=== PATIENT | female | born 2000 | race Caucasian/White ===

== ENCOUNTER 2024-02-11 11:27 | Outpatient (CLI) | payer OTHER, SELFPAY ==
--- OUTSIDE RECORDS SUMMARY | 2024-02-11 11:32 | XMS_ITS | Encounter Summary ---
Author Organization [facility] Address [address] [place] [address] Care Team Providers Care Combining Machine Operator Name Role Phone Post, Mike Pearce APRN, C.N.P. Primary Care Provid er Reason for Visit * Reason Comments Med Refill Encounter Details Date Type Department Care Team (Late st Contact Info) Description 11/06/2023 Refill Department of Family Medicine, [facility], in [place], [place] [address] [place] [phone] Post, Mike Pearce APRN, C.N.P. [address] [place] [phone] Med Refill Social History Tobacco Use Types Packs/Day Years Used Date Smoking Tobacco: Never Smokeless Tobacco: Never Alcohol Use Standard Drinks/Week Comments Yes 2 (1 standard drink = 0.6 oz pur e alcohol) Humiliation, Afraid, Rape, and Kick questionnair e Answer Date Recorded Within the last year, have y ou been afraid of your partner or ex-partner? No 08/17/2021 Within the last year, have y ou been humiliated or emotionally abused in other ways by your partner or ex-partner? No Within the last year, have y ou been kicked, hit, slapped, or otherwise physically hurt by your partner or ex-partner? No 08/17/2021 Within the last year, have y ou been raped or forced to have any kind of sexual activity by your partner or ex-partner? No 08/17/2021 Social Connection and Isolat ion Panel [NHANES] Answer Date Recorded In a typical week, how many times do you talk on the phone with family, friends, or neighbors? More than three times a week 08/17/2021 How often do you get togethe r with friends or relatives? More than three times a week 08/17/2021 How often do you attend chur ch or islam services? Never 08/17/2021 Do you belong to any clubs o r organizations such as yarsani groups, unions, fraternal or athletic groups, or school groups? No 08/17/2021 How often do you attend meet ings of the clubs or organizations you belong to? Never 08/17/2021 Are you , , di vorced, , never , or living with a partner? Never 08/17/2021 AUDIT-C Answer Date Recorded Q1: How often do you have a drink containing alc ohol? 2-4 times a month 08/17/2021 Q2: How many drinks containi ng alcohol do you have on a typical day when you are drinking? 3 or 4 08/17/2021 Q3: How often do you have si x or more drinks on one occasion? Less than monthly 08/17/2021 Overall Financial Resource Strain (CARDIA) Answe r Date Recorded How hard is it for you to pa y for the very basics like food, housing, medical care, and heating? Not very hard 02/20/2023 PHQ-2 Answer Date Recorded PHQ-2 Score 0 06/17/2023 [facility] Answer Date Recorded Do you feel stress - tense, restless, nervous, or anxious, or unable to sleep at night because your mind is troubled all the time - these days? Only a little 08/17/2021 Exercise Vital Sign Answer Date Recorde d On average, how many days pe r week do you engage in moderate to strenuous exercise (like a brisk walk)? 3 days 02/20/2023 On average, how many minutes do you engage in exercise at this level? 30 min 02/20/2023 Hunger Vital Sign Answer Date Recorded Within the past 12 months, y ou worried that your food would run out before you got the money to buy more. Never true 02/21/20 23 Within the past 12 months, t he food you bought just didn't last and you didn't have money to get more. Never true 02/20/2023 PRAPARE - Transportation Answer Date Re corded In the past 12 months, has l ack of transportation kept you from medical appointments or from getting medications? No 02/07 In the past 12 months, has l ack of transportation kept you from meetings, work, or from getting things needed for daily living? No 02/20/2023 Depression Answer Date Recor ded PHQ-9-M Total Score (5-9=Mil d, 10-14=Moderate, 15-19=Moderately Severe, 20-27=Severe) 1 07/14/2019 Nutrition Answer Date Recorded On average, how many serving s of fruits and vegetables do you eat per day (serving size is equal to 1 cup or approximately the size of a tennis ball)? 3-5 02/20/2023 Dental Answer Date Recorded Dental: Regular Dentist Yes 08/18/19 Employment Answer Date Recorded Employment status Employed and actively working without restrictions 02/20/2023 Housing Stability Answer Date Recorded What is your living situation today? I have a [facility] place to live 02/20/2023 Education Answer Date Recorded What is the highest level of school you have completed or the highest degree you have received? Some college, no degree 08/17/2021 Comments Unknown Sex and Gender Information Value Date Recorded Sex Assigned at Female 02/20/2023 8:45 AM MORTGAGE PROCESSING MANAGER Legal Sex Female 2:46 AM MORTGAGE PROCESSING MANAGER Gender Identity Female 02/20/2023 8:45 AM MORTGAGE PROCESSING MANAGER Sexual Orientation Lesbian or Bergman 02/20/2023 8: 45 AM MORTGAGE PROCESSING MANAGER documented as of this encounter Miscellaneous Notes * Telephone Encounter - Kalyn Fair - 11/07/2023 3:02 PM CDT Duplicate(pt sent a request)-being addressed in another encounter documented in this encounter Plan of Treatment Not on file documented as of this encounter Visit Diagnoses Diagnosis Attention Deficit Disorder Combined Type documented in this encounter Additional Health Concerns Assessment Noted Time PHQ-9 Depression Total Score: 1 07/14/19 20 12:53 PM CDT documented as of this encounter Care Teams Combining Machine Operator Relationship Specialty Start Date End Date Post, Mike Pearce APRN, C.N.P. [address] [place] [phone] PCP - General Family Medicine 02/17/23 documented as of this encounter
--- OUTSIDE RECORDS SUMMARY | 2024-02-11 11:32 | XMS_ITS | Encounter Summary ---
Author Organization [facility] Address [address] [place] [id number] Care Team Providers Care Dental Laboratory Supervisor Name Role Phone Post, Mike Pearce APRN C.N.P. Primary Care Provid er Reason for Visit * Reason Onset Date Comments STI Screening 02/04/2024 Encounter Details Date Type Department Care Team (Late st Contact Info) Description 02/04/2024 Nurse Triage Department of Family Medicine, [facility], in [place], [place] [address] [place] [phone] Dayanna Stringer, RTrent, C.M.S.R.N. [address] [place] [phone] STI Screening Social History Tobacco Use Types Packs/Day Years [...] often do you attend chur ch or congregation services? Never 08/17/2021 Do you belong to any clubs o r organizations such as orthodoxy groups, unions, fraternal or athletic groups, or [...] Answer Date Recorded PHQ-2 Score 0 06/17/2023 [facility] - Occupational Stress Questionnaire Answer Date [...] Date Recorded Dental: Regular Dentist Yes 08/18/19 22 Employment Answer Date Recorded Employment status Employed and actively working without restrictions 02/20/2023 Housing Stability Answer Date Recorded What is your living situation today? I have a [facility] place to live 02/20/2023 Education Answer Date Recorded What is the highest level of school you have completed or the highest degree you have received? Some college, no degree 08/17/2021 Comments Unknown Sex and Gender Information Value Date Recorded Sex Assigned at Female 02/20/2023 8:45 AM HOME VISITS NURSE Legal Sex Female 2:46 AM HOME VISITS NURSE Gender Identity Female 02/20/2023 8:45 AM HOME VISITS NURSE Sexual Orientation Lesbian or Bergman 02/20/2023 8: 45 AM HOME VISITS NURSE documented as of this encounter Miscellaneous Notes * Telephone Encounter - Dayanna Stringer R.N., C.M.S.R.N. - 02/04/2024 2:10 PM HOME VISITS NURSE Chief Complaint / Reason for Call Patient is a 23 y.o. female calling regarding STI Screening. Assessment Concern: Concerned for possibility of chlamydia as a sexual partner has tested positive. Denies symptoms. Home cares tried: monitor Calling to request: STI screening The recommended disposition is See a health care provider within 3 days. Patient was warm transferred to [place], Patient Appointment Fur Farmer at the clinic for further assistance. If clinic appointment is not available in the next 3 days, caller is advised to be seen in urgent care, emergency department, same day clinic, or express care. Encouraged call back with new, worsening, or persistent symptoms. Reason for Disposition Sex partner of someone who was diagnosed with an STI (Exception: Male exposed to bacterial vaginosis or vaginal yeast infection.) Protocols used: STI Hllvgzrb-Eimok-RP Care Advice STI Oikeizbk-Ttgpq-LA Nurse Dayanna Lund Feb 04, 2024 02:11 PM Care Advice CARE ADVICE given per STI Exposure (Adult) guideline. CALL BACK IF: * You have more questions STIS - TREATMENT OF EXPOSED SEX PARTNERS: * Sex partners who have been exposed to someone with an STI should be evaluated by their doctor (orNP/PA), given counseling, and in some cases post-exposure treatment to prevent infection. * To avoid reinfection, people exposed to STIs should not have oral, anal, or vaginal sex until they and their partners are evaluated and treated. Reason: Sexual intercourse is only one of the ways that STIs can be spread. REASSURANCE AND EDUCATION - EXPOSURE TO SOMEONE WITH AN STI: * Sex partners who have been exposed to someone with an STI should be evaluated by their doctor (orNP/PA), given counseling, and in some cases post-exposure treatment to prevent infection. * Here is some care advice and health information that should help. VISITS NURSE documented in this encounter Plan of Treatment Not on file documented as of this encounter Visit Diagnoses Not on filedocumented in this encounter Additional Health Concerns Assessment Noted Time PHQ-9 Depression Total Score: 1 07/14/19 20 12:53 PM CDT documented as of this encounter Care Teams Dental Laboratory Supervisor Relationship Specialty Start Date End Date Post, Mike Pearce APRN, C.N.P. [address] [place] [phone] PCP - General Family Medicine 02/17/23 documented as of this encounter
--- OUTSIDE RECORDS SUMMARY | 2024-02-11 11:32 | XMS_ITS | Referral Summary ---
Author Organization [facility] Address [address] [place] [address] Care Team Providers Care Grease Refining Supervisor Name Role Phone Post, Mike Pearce APRN, C.N.P. Primary Care Provid er Source Comments Patient records contain information from all sites at [facility]. For routine questions regarding patient records, call [phone] during business hours, M-F 8:00 AM - 5:00 PM Central Time. Record requests for emergency care only can be directed to [phone] at any time.[facility] Encounters Date Type Department Care Team Description 02/10/2024 Refill Department of [facility], [facility], in [place] [address] [place] [place] [phone] Mike Hampton APRN, C.N.P. Med Refill 02/04/2024 Nurse Triage Department of [facility], [facility], [place] [address] [place] [phone] Dayanna Stringer R.N., C.M.S.R.N. STI Screening 01/12/2024 Refill Department of Family [facility], [facility], [place] [address] [place] [phone] Mike aHmpton APRN, C.N.P. Med Refill 11/30/2023 Refill Department of Family [facility], [facility], [place] [address] [place] [phone] Mike Hampton APRN, C.N.P. Med Refill 11/28/2023 9:25 AM CDT - 11/28/2023 10:09 AM CDT Emergency [facility] [address] [place] [address] [place] [phone] Aliza Simmons APRN, C.N.P., D.N.P. Laceration Hand Without Foreign Body Initial Right (Primary Dx) Discharge Disposition: Home or Self Care from Last 3 Months Allergies Active Allergy Reactions Criticality Noted Date Comments Amoxicillin Rash 09/03/2002 Sulfa (Sulfonamide Antibiotics) Hives (Reselect Reaction) 02/06/2012 by history Medications * This document contains information received from the source organization and may not represent a complete record from that organization. methylphenidate HCl 18 mg ER tabletIndicatio ns:Attention Deficit Disorder Combined Type Take 1 tablet (18 mg total) by mouth every morning. 30 tablet 4 Active methylphenidate HCl 18 mg ER tabletIndicatio ns:Attention Deficit Disorder Combined Type Take 1 tablet (18 mg total) by mouth every morning. 30 tablet 4 01/14/20 24 Discontinued Active Problems Problem Noted Date Diagnosed Date Attention Deficit Disorder Combined Type 018 Resolved Problems Problem Noted Date Diagnosed Date Resolved Date Fatigue 02/24/2023 06/18/2023 Immunizations Name Administration Dates Next Due 4vHPV (discontinued) 08/09/2013,03/08/2013,12/29 DTaP (Infanrix, Tripedia) 07/28/2006,07/2003,06/08/2002,2002,02/11/2002 DTaP / Hib 03/14/2003 DTaP, Unspecified 07/28/2006, 3,04/12/2002,2001 H1N1 All Forms 02/21/2009,01/14/2009 H1N1 Inj 02/22/2009 H1N1 Nasal 01/14/2009 HPV, Unspecified 08/09/2013, 3,12/29/2012,2012(Deferred: Other) HepA Pediatric/Adolescent 09/13/2016,10/13/2014 HepA, Unspecified 12/08/2016(Deferred: Other) HepB Pediatric/Adolescent 09/03/2002,04/12/2002, 02/11/2002 Hib, Unspecified 03/14/2003,04/12/2002, 2 Hib-HepB 04/12/2002,02/11/2002 IPV 07/28/2006, 3,04/12/2002,2001 Influenza Split 12/21/2012,01/09/2012,01/17/2011 Influenza, Injectable, Quadrivalent 01/02/2015 Influenza, Seasonal, Injectable 01/09/20 12,01/17/2011,01/10/2006,2002 Influenza, Unspecified 12/11/2016,01/15/2016 MCV4 (Menactra)(Discontinued) 01/11/2019, 015,12/29/2012 MCV4 (Menveo) 10/13/2014,12/29/2012 MCV4, Unspecified 12/29/2012 MMR 12/17/2004,12/15/2002 PCV7 (discontinued) 03/14/2003, 3,04/10/2002,2001 Tdap 02/24/2023,12/29/2012 PATRICK 07/28/2006,12/15/2002 influenza LAIV (Nasal) (2 ye ars through 49 years) 12/27/2013 influenza trivalent LAIV (Na alfonzo) (2 years through 49 years) 12/21/2009,01/26/2009,03/22/2008,2006 influenza trivalent high dos e (HD)(PF) 12/21/2012 influenza vaccine quad (FLUZONE/FLUARIX) (6 months and older)(PF) 01/11/2019,01/19/2018,12/11/2016,2015 Social History Tobacco Use Types Packs/Day Years Used Date Smoking Tobacco: Never Smokeless Tobacco: Never Tobacco Cessation:Counseling Given: Yes Alcohol Use Standard Drinks/Week Comments Yes 2 [...] week 08/17/2021 How often do you attend [facility] or yarsanism services? Never 08/17/2021 Do you belong to any clubs o r organizations such as lutheran groups, unions, fraternal or athletic groups, or [...] Answer Date Recorded PHQ-2 Score 0 06/17/[address] [facility] [address] [facility] - Occupational Stress Questionnaire Answer Date Recorded [...] your living situation today? I have a [facility] place to live 02/20/2023 Education Answer Date Recorded What is the highest level of school you have completed or the highest degree you have received? Some college, no degree 08/17/2021 Comments Unknown Sex and Gender Information Value Date Recorded Sex Assigned at Female 02/20/2023 8:45 AM FUR MATCHER Legal Sex Female 2:46 AM FUR MATCHER Gender Identity Female 02/20/2023 8:45 AM FUR MATCHER Sexual Orientation Lesbian or Bergman 02/20/2023 8: 45 AM FUR MATCHER Last Filed Vital Signs Vital Sign Reading Time Taken Comments Blood Pressure 113/60 11/28/2023 9:30 AM CDT Pulse 94 11/28/2023 9:30 AM CDT Temperature 36.3 C (97.3 F) 11/28/2023 9:30 AM CDT Respiratory Rate 18 11/28/2023 9:30 AM CDT Oxygen Saturation 100% 11/28/2023 9:30 AM CDT Inhaled Oxygen Concentration - - Weight 54.8 kg (120 lb 13 oz) 06/18/2023 10:52 A M CDT Height 164 cm (5' 4.57) 06/18/2023 10:52 AM CDT Body Mass Index 20.37 06/18/2023 10:52 AM CDT Plan of Treatment Not on file Procedures Procedure Name Priority Date/Time Associated Diagnosis Comments LACERATION REPAIR Routine 11/28/2023 9:5 3 AM CDT HPV WITH GENOTYPING, PCR, THINPREP Routine 06/18/2023 11:16 AM CDT CHLAMYDIA/GONORRHOEA E AMPLIFIED RNA Routine 01/26/2018 1:55 PM FUR MATCHER Screening For Venereal Disease from Last 3 Months or Most Recently Relevant to Health Maintenance Results * Laceration Repair (11/28/2023 9:53 AM CDT) Narrative Aliza Simmons APRN, C.N.P., D.N.P. - 11/28/2023 9:53 AM CDT Aliza Simmons APRN, C.N.P., D.N.P. 11/28/2023 9:54 AM Laceration Repair Performed by: Aliza Simmons APRN, C.N.P., D.N.P. Authorized by: Aliza Simmons APRN, C.N.P., D.N.P. PROCEDURE DETAILS Repair type: Simple Limited defect created (wound extended): yes Hemostasis achieved with: Direct pressure Contaminated: no Wound exploration: wound explored through full range of motion Wound extent: areolar tissue violated Repair method: Sutures Suture size: 4-0 Suture material: Nylon Suture technique: Simple interrupted Number of sutures: 4 Approximation: Close CONSENT Consent obtained: verbal Consent given by: patient The benefits, risks and alternatives to the procedure and the potential need for sedation or anesthesia as well as the names, roles, and responsibilities of healthcare team members performing significant interventional tasks were discussed with the patient and/or decision maker. UNIVERSAL PROTOCOL All relevant documentation and testing were reviewed and available. All required blood products, implants, devices and or special equipment were made available as applicable. Pre-procedure verification was conducted and the correct site was marked if required. A fire risk and smoke assessment were done as applicable. The procedural time-out to verify correct patient, correct side/site, and procedure was conducted prior to performing the procedure and confirmed in a procedural pause. SEDATION / ANESTHESIA Anesthesia method: none PRE PROCEDURE DETAILS Indication: laceration Location: Hand Hand location: Right dorsal surface Circulation distal to injury: capillary refill < 2 sec, warm and palpable pulse Movement distal to injury: normal Sensation distal to injury: normal Area cleansed with: Saline Amount of cleaning: Standard Irrigation solution: Sterile saline Irrigation volume (mL): 500 Irrigation method: Pressure wash Foreign body imaging: None Appropriate hand hygiene, gown, cap, mask, protective eyewear, sterile gloves, skin preparation, sterile drape, and strict aseptic technique were utilized as applicable for the procedure.: Yes POST PROCEDURE DETAILS Procedure completed successfully: yes Tetanus status up to date: Up to date Dressing Applied: yes Dressing applied: Non-stick sterile dressing Circulation distal to injury: capillary refill < 2 sec, warm and palpable pulse Movement distal to injury: normal Sensation distal to injury: normal Complications: no immediate complications Aliza Simmons APRN, C.N.P ., D.N.P. PROCEDURE/MINOR SURGICAL ORDERABLES Final Result * HPV with Genotyping, PCR, ThinPrep (06/18/2023 11:16 AM CDT) HPV with Genotyping, ThinPrep, PCR Negative Negative 06/24/2023 12:42 PM CDT ECLR Comment: Negative for high risk HPV by nucleic acid amplification. The following high risk HPV types were not detected: 16, 18, 31, 33, 35, 39, 45, 51, 52, 56, 58, 59, 66, and 68 This result does not rule out HPV in the patient, as the sensitivity of the test depends on the timing of the specimen collection and the quality of the specimen. Result should be correlated with patient's history, clinical presentation, and [facility] cytology report. 06/18/2023 11:1 6 AM CDT 06/19/2023 7:24 AM CDT us Beckie Manuel M.D. LAB MICROBIOLOGY - GENERAL ORDERABLES Final Result Performing Organization Address [facility]/ZIP Co de Phone Number [facility] [address] [place] [id number] ECLR [address] [place] [id number] * Chlamydia / Gonorrhoeae Amplified RNA (01/26/2018 1:55 PM FUR MATCHER) Source URINE, FIRST VOID 01/27/2018 2:08 PM FUR MATCHER [facility] Chlamydia trachomatis amplified RNA Negative Negative 01/27/2018 2:08 PM FUR MATCHER [facility] Comment: ----ADDITIONAL INFORMATION---- This report is intended for use in clinical monitoring and management of patients. It is not intended for use in medical-legal applications. Source URINE, FIRST VOID 01/27/2018 2:08 PM FUR MATCHER [facility] Neisseria gonorrhoeae amplified RNA Negative Negative 01/27/2018 2:08 PM FUR MATCHER [facility] Comment: ----ADDITIONAL INFORMATION---- This report is intended for use in clinical monitoring and management of patients. It is not intended for use in medical-legal applications. Varies (Urine, First Voided) 01/26/2018 1:55 PM FUR MATCHER 01/26/2018 9:47 PM FUR MATCHER us Sarahi Riggs LAB MICROBIOLOGY - GENERAL ORDERABLES Final Result [facility] [address] [place] [address], [facility] from Last 3 Months or Most Recently Relevant to Health Maintenance Insurance [facility] [address] [place] [address] Care Teams Grease Refining Supervisor Relationship Specialty Start Date End Date Post, Mike Pearce APRN, C.N.P. [address] [place] [address] PCP - General Family Medicine 02/17/23
--- OUTSIDE RECORDS SUMMARY | 2024-02-11 11:32 | XMS_ITS | Clinical Summary ---
Author Organization [facility] Address [address] [place] [address] Care Team Providers Care Delivery Recruiter Name Role Phone Post, Cari Puente APRN.N.P. Primary Care Provid er Source Comments Patient records contain information from all sites at [facility]. For routine questions regarding patient records, call [phone] during business hours, M-F 8:00 AM - 5:00 PM Central Time. Record requests for emergency care only can be directed to [phone] at any time.[facility] Allergies Active Allergy Reactions Criticality Noted Date [...] Diagnosed Date Resolved Date Fatigue 02/24/2023 06/18/2023 Encounters Date Type Department Care Team Description 02/10/2024 Refill Department of Family Medicine, [facility], in [place] [address] [place] [phone] Post, Mike Pearce APRN C.N.P. Med Refill 02/04/2024 Nurse Triage Department of [facility], [facility], in [place] [address] [place] [phone] Dayanna Stringer R.N., C.M.S.R.N. STI Screening 01/12/2024 Refill Department [facility], [facility], in [place] [address] [address], [place] [phone] Post, Mike Pearce APRN, C.N.POneyda Med Refill 11/30/2023 Refill Department [facility], in [place] [address] [place] [phone] Post, Mike Pearce APRN C.N.P. Med Refill 11/28/2023 9:25 AM CDT - 11/28/2023 10:09 AM CDT Emergency [facility] [address] [place] [address], [place] [phone] Aliza Simmons APRN, C.N.P., D.N.P. Laceration Hand Without Foreign Body Initial Right (Primary Dx) Discharge Disposition: Home or Self Care from Last 3 Months Immunizations Name Administration Dates Next Due 4vHPV [...] quad (FLUZONE/FLUARIX) (6 months and older)(PF) 01/11/2019,01/19/2018,12/11/2016,2015 Family History Medical History Relation Name Comments No Known Problems Brother No Known Problems Father Anxiety depression Mother Brynn Depression Mother Brynn Heart attack Paternal Grandfather No Known Problems Sister Stroke Neg Hx Relation Name Status Comments Brother Alive Father Alive Mother Brynn Alive Paternal Grandfather Alive Sister Alive Social History Tobacco Use Types Packs/Day Years [...] 08/17/2021 How often do you attend chur or congregational services? Never 08/17/2021 Do you belong to [...] PHQ-2 Score 0 06/17/2023 [facility] - Occupational Stress Questionnaire Answer Date [...] money to buy more. Never true 02/21/20 Within the past 12 months, t he [...] your living situation today? I have a [facility] place to live 02/20/2023 Education Answer Date Recorded What is the highest level of school you have completed or the highest degree you have received? Some college, no degree 08/17/2021 Comments Unknown Sex and Gender Information Value Date Recorded Sex Assigned at Female 02/20/2023 8:45 AM SUPERVISOR ALUMINUM FABRICATION Legal Sex Female 2:46 AM SUPERVISOR ALUMINUM FABRICATION Gender Identity Female 02/20/2023 8:45 AM SUPERVISOR ALUMINUM FABRICATION Sexual Orientation Lesbian or Bergman 02/20/2023 8: 45 AM SUPERVISOR ALUMINUM FABRICATION Last Filed Vital Signs Vital Sign Reading [...] 06/18/2023 10:52 AM CDT Plan of Treatment Health Maintenance Due Date Last Done Comments HIV Screening 2001 Hepatitis C Screening 2001 Chlamydia and Gonorrhea Screening 01/26/2019 01/26/2018 COVID-19 Vaccine ( season) 2023 Influenza Vaccine (#1) 2023 9, 01/19/2018, 12/11/2016, Additional history exists Tobacco Cessation counseling 06/17/2024 06/18/2023 Cervical/Vaginal Cancer Screening 06/17/2026 06/18/2023, 06/18/2023 DTaP,Tdap,and Td Vaccines (8 - Td or Tdap) 02/24/2033 02/24/2023, 12/29/2012, 07/28/2006, Additional history exists Hepatitis B Vaccines Completed 09/03/2002, 04/12/2002, 04/12/2002, Additional history exists Pneumococcal vaccine (0-64 years) Aged Out 03/14/2003, 06/14/2002, 04/10/2002, Additional history exists No longer eligible based on patient's age to complete this topic IPV Vaccines Completed 07/28/2006, 09/2002, 04/12/2002, Additional history exists Varicella Vaccines Completed 07/28/2006, 12/15/2002 HPV Vaccines Completed 08/09/2013, 04/2013, 03/08/2013, Additional history exists Meningococcal Vaccine Completed 01/11/2019 , 10/13/2014, 10/13/2014, Additional history exists Depression Screening (Annual PHQ-2) Completed 06/18/2023, 06/17/2023 Procedures Procedure Name Priority Date/Time Associated Diagnosis Comments LACERATION REPAIR Routine 11/28/2023 9:5 3 AM CDT HPV WITH GENOTYPING, PCR, THINPREP Routine 06/18/2023 11:16 AM CDT CHLAMYDIA/GONORRHOEA E AMPLIFIED RNA Routine 01/26/2018 1:55 PM SUPERVISOR ALUMINUM FABRICATION Screening For Venereal Disease from Last 3 [...] correlated with patient's history, clinical presentation, and OPHTHALMIC TECHNICIAN cytology report. 06/18/2023 11:1 6 AM CDT 06/19/2023 7:24 AM CDT us Beckie Manuel M.D. LAB MICROBIOLOGY - GENERAL ORDERABLES Final Result Performing Organization Address City/[facility]/ZIP Co de Phone Number [facility] [address] [place] [phone], [facility] ECLR [address] [phone] * Chlamydia / Gonorrhoeae Amplified RNA (01/26/2018 1:55 PM SUPERVISOR ALUMINUM FABRICATION) Source URINE, FIRST VOID 01/27/2018 2:08 PM SUPERVISOR ALUMINUM FABRICATION [facility] Chlamydia trachomatis amplified RNA Negative Negative 01/27/2018 2:08 PM SUPERVISOR ALUMINUM FABRICATION [facility] Comment: ----ADDITIONAL INFORMATION---- This report is intended for use in clinical monitoring and management of patients. It is not intended for use in medical-legal applications. Source URINE, FIRST VOID 01/27/2018 2:08 PM SUPERVISOR ALUMINUM FABRICATION [facility] Neisseria gonorrhoeae amplified RNA Negative Negative 01/27/2018 2:08 PM SUPERVISOR ALUMINUM FABRICATION [facility] Comment: ----ADDITIONAL INFORMATION---- This report is intended for use in clinical monitoring and management of patients. It is not intended for use in medical-legal applications. Varies (Urine, First Voided) 01/26/2018 1:55 PM SUPERVISOR ALUMINUM FABRICATION 01/26/2018 9:47 PM SUPERVISOR ALUMINUM FABRICATION us Sarahi Riggs LAB MICROBIOLOGY - GENERAL ORDERABLES Final Result [facility] [address] [place] [phone], [facility] from Last 3 Months or Most Recently Relevant to Health Maintenance Insurance [facility] [address] [place] [id number] [address] [place] [phone] [facility] [address] [place] [id number] Care Teams Delivery Recruiter Relationship Specialty Start Date End Date Post, Mike Pearce APRN, C.N.P. [address] [place] [phone] PCP - General Family Medicine 02/17/23
--- OUTSIDE RECORDS SUMMARY | 2024-02-11 11:32 | XMS_ITS | Encounter Summary ---
Author Organization [facility] Address [address] [place] [address] Care Team Providers Care Day Worker Name Role Phone Post, Mike Pearce APRN, C.N.P. Primary Care Provid er Reason for Visit * Reason Comments Med Refill Encounter Details Date Type Department Care Team (Late st Contact Info) Description 02/10/2024 Refill Department of Family Medicine, [facility], in [place], [place] [address] [place] [phone] Post, Mike Pearce APRN, C.N.P. [address] [place] [phone] Med Refill Social History Tobacco Use Types [...] often do you attend chur ch or voodoo services? Never 08/17/2021 Do you belong to any clubs o r organizations such as anabaptist groups, unions, fraternal or athletic groups, or [...] Answer Date Recorded PHQ-2 Score 0 06/17/2023 [facility] Questionnaire Answer Date [...] your living situation today? I have a [facility] place to live 02/20/2023 Education Answer Date Recorded What is the highest level of school you have completed or the highest degree you have received? Some college, no degree 08/17/2021 Comments Unknown Sex and Gender Information Value Date Recorded Sex Assigned at Female 02/20/2023 8:45 AM CAP INSPECTOR Legal Sex Female 2:46 AM CAP INSPECTOR Gender Identity Female 02/20/2023 8:45 AM CAP INSPECTOR Sexual Orientation Lesbian or Bergman 02/20/2023 8: 45 AM CAP INSPECTOR documented as of this encounter Plan of Treatment Not on file documented as of this encounter Visit Diagnoses Diagnosis Attention Deficit Disorder Combined Type documented in this encounter Additional Health Concerns Assessment Noted Time PHQ-9 Depression Total Score: 1 07/14/19 20 12:53 PM CDT documented as of this encounter Care Teams Day Worker Relationship Specialty Start Date End Date Post, Mike Pearce APRN, C.N.P. [address] [place] [phone] PCP - General Family Medicine 02/17/23 documented as of this encounter
--- OUTSIDE RECORDS SUMMARY | 2024-02-11 11:32 | XMS_ITS | Encounter Summary ---
Author Organization [facility] Address [address] [place] [address] Care Team Providers Care Leader Writer Name Role Phone Post, Mike Pearce APRN, C.N.P. Primary Care Provid er Reason for Visit * Reason Comments Med Refill Encounter Details Date Type Department Care Team (Late st Contact Info) Description 01/12/2024 Refill Department of Family Medicine, [facility], in [place], [place] [address] [place] [phone] Post, Mike Pearce APRN, C.N.P. 200 [place] [phone] Med Refill Social History Tobacco Use Types [...] often do you attend chur ch or sabianist services? Never 08/17/2021 Do you belong to any clubs o r organizations such as amish groups, unions, fraternal or athletic groups, or [...] Answer Date Recorded PHQ-2 Score 0 06/17/2023 [facility] Questionnaire Answer Date Recorded [...] your living situation today? I have a [facility] place to live 02/20/2023 Education Answer Date Recorded What is the highest level of school you have completed or the highest degree you have received? Some college, no degree 08/17/2021 Comments Unknown Sex and Gender Information Value Date Recorded Sex Assigned at Female 02/20/2023 8:45 AM PHYSICAL TESTING SUPERVISOR Legal Sex Female 2:46 AM PHYSICAL TESTING SUPERVISOR Gender Identity Female 02/20/2023 8:45 AM PHYSICAL TESTING SUPERVISOR Sexual Orientation Lesbian or Bergman 02/20/2023 8: 45 AM PHYSICAL TESTING SUPERVISOR documented as of this encounter Miscellaneous Notes * Telephone Encounter - Raina Larry L.P.NOneyda - 01/13/2024 2:31 PM PHYSICAL TESTING SUPERVISOR Controlled substance renewal for Concerta 18 mg: ALERT NURSING CONCERN: 6 month ADD follow up overdue Renewal is pended, but missing information provider to complete if okay with renewal due to concerns by nursing Date last renewed (start date): 12/02/2023 Last provider visit: Pap 06/18/2023, ADD 02/24/2023 Next provider visit due: 08/26/2023 overdue, order in place to schedule ICAL TESTING SUPERVISOR documented in this encounter Plan of Treatment Not on file documented as of this encounter Visit Diagnoses Diagnosis Attention Deficit Disorder Combined Type documented in this encounter Additional Health Concerns Assessment Noted Time PHQ-9 Depression Total Score: 1 07/14/19 20 12:53 PM CDT documented as of this encounter Care Teams Leader Writer Relationship Specialty Start Date End Date Post, Mike Pearce APRN, C.N.P. [address] [place] [phone] PCP - General Family Medicine 02/17/23 documented as of this encounter
--- OUTSIDE RECORDS SUMMARY | 2024-02-11 11:32 | XMS_ITS ---
Author Organization [facility] Address [address] [place] [address] Care Team Providers Care Marine Tower Operator Name Role Phone Unavailable Unavailable Unavailable Surgery Details Not on file Complications Check Surgery Details section. Procedure Estimated Blood Loss Check Surgery Details section. Procedure Findings Check Surgery Details section. Procedure Specimens Taken Check Surgery Details section.
--- OUTSIDE RECORDS SUMMARY | 2024-02-11 11:32 | XMS_ITS | Encounter Summary ---
Author Organization [facility] Address [address] [place] [address] Care Team Providers Care Kiln Operator Helper Name Role Phone Post, Mike Pearce APRN, C.N.P. Primary Care Provid er Reason for Referral * Outpatient (Routine) - Authorized Specialty Diagnoses / Procedures Referred By Contsamm t Referred To Contact Emergency Medicine Diagnoses Laceration Hand Without Foreign Body Initial Right Aliza Simmons APRN, C.N.P., D.N.P. [address] [phone] Phone: tel: fax: [facility] Region Referral ID Status Reason Start Date Expiration Date V isits Requested Visits Authorized [id number] Authorized 11/28/2023 05/29/2025 1 1 Reason for Visit * Reason Comments Laceration Right 5th finger Encounter Details Date Type Department Care Team (Late st Contact Info) Description 11/28/2023 9:25 AM CDT - 11/28/2023 10:09 AM CDT Emergency [facility] [address] [place] [address] [place] [phone] Aliza Simmons APRN, C.N.P., D.N.P. [address] [place] [phone] Laceration Hand Without Foreign Body Initial Right (Primary Dx) Discharge Disposition: Home or Self Care Social History Tobacco Use Types Packs/Day Years [...] week 08/17/2021 How often do you attend [facility] or amish services? Never 08/17/2021 Do you belong to any clubs o r organizations such as orthodox groups, unions, fraternal or athletic groups, or [...] PHQ-2 Score 0 06/17/2023 [facility] - Occupational Stress Questionnaire Answer Date Recorded [...] Sex Assigned at Female 02/20/2023 8:45 AM NURSING EXECUTIVE Legal Sex Female 2:46 AM NURSING EXECUTIVE Gender Identity Female 02/20/2023 8:45 AM NURSING EXECUTIVE Sexual Orientation Lesbian or Bergman 02/20/2023 8: 45 AM NURSING EXECUTIVE documented as of this encounter Last Filed Vital Signs Vital Sign Reading Time Taken Comments Blood Pressure 113/60 11/28/2023 9:30 AM CDT Pulse 94 11/28/2023 9:30 AM CDT Temperature 36.3 C (97.3 F) 11/28/2023 9:30 AM CDT Respiratory Rate 18 11/28/2023 9:30 AM CDT Oxygen Saturation 100% 11/28/2023 9:30 AM CDT Inhaled Oxygen Concentration - - Weight - - Height - - Body Mass Index - - documented in this encounter Discharge Instructions * Discharge Instructions* Aliza Simmons APRN, C.N.P., D.N.P. - 11/28/2023 9:55 AM CDT You will need to have your sutures removed within a week. You may continue to take oqwh-ira-rykqtbcHqwwrmh 650 mg every 4-6 hours as needed for pain or discomfort return with any worsening symptoms,or any other concerns. * Attachments The following attachments cannot be sent through Care Everywhere. * Laceration Care Adult Ngld-ux-[id number] (Japanese) documented in this encounter Medications at Time of Discharge methylphenidate HCl 18 mg ER tabletIndications :Attention Deficit Disorder Combined Type Take 1 tablet (18 mg total) by mouth every morning. 30 tablet 11/11/2023 11/30/2023 documented as of this encounter Procedure Notes * Aliza Simmons APRN, C.N.P., D.N.P. - 11/28/2023 9:53 AM CDTAssociated Order(s): Laceration Repair Procedure Laceration Repair Performed by: Aliza Simmons APRN, [...] Complications: no immediate complications Aliza Simmons APRN, C.N.P., D.N.P. 11/28/23 0977 documented in this encounter ED Notes * Aliza Simmons APRN, C.N.P., D.N.P. - 11/28/2023 9:30 AM CDT SUBJECTIVE CHIEF COMPLAINT/REASON FOR VISIT Laceration (Right 5th finger) HISTORY OF PRESENT ILLNESS This is a 22-year-old female, who presents to the emergency department for evaluation of a laceration to her right 5th digit. Prior to her arrival, while she was reaching in her purse, she obtain a laceration with a broken mirror that she has short in her purse. She is able to move her fingers, shedoes not have any loss of sensation or paresthesias. REVIEW OF SYSTEMS All other systems reviewed and are negative. OBJECTIVE Initial Vitals [11/28/23 0930] Temperature 36.3 ??C Pulse Rate 94 Heart Rate Resp Rate 18 Blood Pressure 113/60 SpO2 100 % Pain Score 0 - No pain PHYSICAL EXAMINATION Constitutional: Nursing note and vitals reviewed. No distress. HENT: Head: Normocephalic. Mouth/Throat: Mucous membranes are moist. Cardiovascular: Normal rate and regular rhythm. Skin: She is not diaphoretic. Horizontal laceration to base of right 5th phalanx, surrounding tissue with no erythema, edema, or hematoma. Right upper extremities neurovascularly intact. ASSESSMENT/PLAN Patient is hemodynamically stable upon her arrival to the emergency department. Wound was explored thoroughly, there is no obvious foreign body. Her right upper extremity is neurovascularly intact. There is no concern for tendon or ligament injury. Please refer to separate note for laceration repair details. Discharge home disposition was discussed. She will need to follow-up with PCP within a week for suture removal. She may continue to take jusu-ujc-mlkekdf acetaminophen 650 mg every 4 to hours as needed pain or discomfort. Strict return precautions were discussed. She is in agreement with the plan of care. Final Diagnoses: as of 11/28/23 1002 Laceration Hand Without Foreign Body Initial Right Aliza Simmons APRN, LouisN.P., D.N.P. 11/28/23 1018 documented in this encounter Plan of Treatment Scheduled Referrals Name Type Priority Associated Diagnoses Orde r Schedule POST ED VISIT Family Medicine Outpatient Referral Routine Laceration Hand Without Foreign Body Initial Right Expected: 12/05/2023, Expires: 02/26/2025 documented as of this encounter Procedures Procedure Name Priority Date/Time Associated Diagnosis Comments LACERATION REPAIR Routine 11/28/2023 9:5 3 AM CDT documented in this encounter Results * Laceration Repair (11/28/2023 9:53 AM CDT) Narrative Aliza Simmons APRN, Cari.N.P., D.N.P. - 11/28/2023 9:53 AM CDT Aliza Simmons APRN, LouisN.POneyda, D.N.P. 11/28/2023 9:54 AM Laceration Repair Performed by: Aliza Simmons APRN, C.N.POneyda, D.N.P. Authorized by: Aliza Simmons APRN, C.N.POneyda, D.N.P. PROCEDURE DETAILS Repair type: Simple Limited [...] ., D.N.P. PROCEDURE/MINOR SURGICAL ORDERABLES Final Result documented in this encounter Visit Diagnoses Diagnosis Laceration Hand Without Foreign Body Initial Right- Primary documented in this encounter Administered Medications Inactive Administered Medications - up to 3 most recent administrations Medication Order MAR Action Action Date Dose Rate Site lidocaine 10 mg/mL (1 %) injection 5 mL (Xylocaine) 5 mL, infiltration, Once, On Fri11/28/23 at 0933, For 1 dose Given by Other 11/28/2023 9:35 AM CDT 5 mL documented in this encounter Active and Recently Administered Medications Times are shown in CDT. Scheduled Medication Order 11/26/2023 11/27/2023 11/28/2023 lidocaine 10 mg/mL (1 %) injection 5 mL (Xylocaine) (COMPLETED) 5 mL, infiltration, Once, On Fri11/28/23 at 0933, For 1 dose 0935 (Given by Other - Provider: Florin BenderNOneyda) ondansetron ODT disintegrating tablet 4 mg (Zofran-ODT) 4 mg, oral, Once, On Fri11/28/23 at 0954, For 1 dose, When splitting ODT at bedside, handle with gloves and a pill splitter to prevent moisture contact. 0954 (Due) documented in this encounter Additional Health Concerns Assessment Noted Time PHQ-9 Depression Total Score: 1 07/14/19 20 12:53 PM CDT documented as of this encounter Care Teams Kiln Operator Helper Relationship Specialty Start Date End Date Post, Mike Pearce APRN, C.N.P. [address] [place] [phone] PCP - General Family Medicine 02/17/23 documented as of this encounter
--- OUTSIDE RECORDS SUMMARY | 2024-02-11 11:32 | XMS_ITS | Encounter Summary ---
Author Organization [facility] Address [address] [place] [address] Care Team Providers Care Group Contract Analyst Name Role Phone Post, Mike Pearce APRN, C.N.P. Primary Care Provid er Reason for Visit * Reason Comments Med Refill Encounter Details Date Type Department Care Team (Late st Contact Info) Description 11/30/2023 Refill Department of Family Medicine, [facility], in [place], [place] [address] [place] [phone] Post, Mike Pearce APRN, C.N.P. 200 [place] [phone] Med Refill Social History Tobacco Use Types [...] any clubs o r organizations such as mandaen groups, unions, fraternal or athletic groups, or [...] Answer Date Recorded PHQ-2 Score 0 06/17/2023 [facility] Questionnaire [...] Sex Assigned at Female 02/20/2023 8:45 AM OPEN SHANK COVERER Legal Sex Female 2:46 AM OPEN SHANK COVERER Gender Identity Female 02/20/2023 8:45 AM OPEN SHANK COVERER Sexual Orientation Lesbian or Bergman 02/20/2023 8: 45 AM OPEN SHANK COVERER documented as of this encounter Miscellaneous Notes * Telephone Encounter - Irene Bobby L.P.NOneyda - 12/02/2023 9:39 AM CDT Controlled substance renewal for Concerta 18mg: ALERT NURSING CONCERN: OVERDUE for OFFICE VISIT Renewal is pended per the controlled substance prescribing plan located in Synopsis Date last renewed (start date): 11/11/2023 Last provider visit: 02/24/2023 Screenings due: current Next provider visit due: OVERDUE, active order This prescription may be filled on 12/11/2023, and next renewal may be on or after 01/10/2024 documented in this encounter Plan of Treatment Not on file documented as of this encounter Visit Diagnoses Diagnosis Attention Deficit Disorder Combined Type documented in this encounter Additional Health Concerns Assessment Noted Time PHQ-9 Depression Total Score: 1 07/14/19 20 12:53 PM CDT documented as of this encounter Care Teams Group Contract Analyst Relationship Specialty Start Date End Date Post, Mike Pearce APRN, C.N.P. [address] [place] [phone] PCP - General Family Medicine 02/17/23 documented as of this encounter
--- OUTSIDE RECORDS SUMMARY | 2024-02-11 11:33 | XMS_ITS | Encounter Summary ---
Author Organization [facility] Address [address] [place] [address] Care Team Providers Care Cashier General Name Role Phone Post, Mike Pearce APRN C.N.P. Primary Care Provid er Encounter Details Date Type Department Care Team (Late st Contact Info) Description 07/11/2004 Historical Ophthalmology RST OPH Ayad Thurman M.D. Social History Tobacco Use Types Packs/Day Years Used Date Smoking Tobacco: Never Assessed Comments Unknown Sex and Gender Information Value Date Recorded Sex Assigned at Female 02/20/2023 8:45 AM ICICLE MACHINE OPERATOR Legal Sex Female 2:46 AM ICICLE MACHINE OPERATOR Gender Identity Female 02/20/2023 8:45 AM ICICLE MACHINE OPERATOR Sexual Orientation Lesbian or Bergman 02/20/2023 8: 45 AM ICICLE MACHINE OPERATOR documented as of this encounter Progress Notes * Ayad Thurman M.D. - 07/11/2004 12:00 AM CDT Eye General HISTORY OF PRESENT ILLNESS 3 year 7 month old female, full term baby here because her left eye occasionally turns out. Mom states she holds her hand over it. Left eye soto. IMPRESSION / REPORT / PLAN #1 intermittent XT fair control per hx and exam #2 mild anisometropia discussed in detail with mother, patch right eye 2-3 hrs/day, recheck 6 wks, sooner prn, recheck cyclo rns DIAGNOSIS #1 intermittent XT #2 mild anisometropia CDM Reports - EYEGEN Id: [id number] Status: Fnl documented in this encounter Plan of Treatment Not on file documented as of this encounter Visit Diagnoses Not on filedocumented in this encounter Additional Health Concerns Infection Onset Date Last Indicated Resolved Time COVID19 Pending 12/16/2019 12/16/2019 12/19/2019 3 :49 PM CDT documented as of this encounter Care Teams Cashier General Relationship Specialty Start Date End Date Post, Mike Pearce APRN, C.N.P. [address] [place] [address] PCP - General Family Medicine 02/17/23 documented as of this encounter
--- OUTSIDE RECORDS SUMMARY | 2024-02-11 11:33 | XMS_ITS | Encounter Summary ---
Author Organization [facility] Address [address] [place] [address] Care Team Providers Care Dx Board Operator Name Role Phone Post, Mike Pearce APRN C.N.POneyda Primary Care Provid er Encounter Details Date Type Department Care Team (Late st Contact Info) Description 11/20/2004 Historical Ophthalmology RST OPH Ayad Thurman M.D. Social History Tobacco Use Types Packs/Day Years Used Date Smoking Tobacco: Never Assessed Comments Unknown Sex and Gender Information Value Date Recorded Sex Assigned at Female 02/20/2023 8:45 AM STOCK RANCH SUPERVISOR Legal Sex Female 2:46 AM STOCK RANCH SUPERVISOR Gender Identity Female 02/20/2023 8:45 AM STOCK RANCH SUPERVISOR Sexual Orientation Lesbian or Bergman 02/20/2023 8: 45 AM STOCK RANCH SUPERVISOR documented as of this encounter Progress Notes * Ayad Thurman M.D. - 11/20/2004 12:00 AM CDT Eye General HISTORY OF PRESENT ILLNESS 3 year old here for recheck of intermittent XT. They re supposed to be patching right eye 2-3 hours/ day. Mom states they try every day. She keeps it on maybe 15 minutes. IMPRESSION / REPORT / PLAN #1 intermittent XT fair control back off patching for now recheck 3 mos, sooner prn DIAGNOSIS #1 intermittent XT CDM Reports - EYEGEN Id: [id number] Status: Fnl documented in this encounter Plan of Treatment Not on file documented as of this encounter Visit Diagnoses Not on filedocumented in this encounter Additional Health Concerns Infection Onset Date Last Indicated Resolved Time COVID19 Pending 12/16/2019 12/16/2019 12/19/2019 3 :49 PM CDT documented as of this encounter Care Teams Dx Board Operator Relationship Specialty Start Date End Date Post, Mike Pearce APRN, C.N.P. [address] [place] [address] PCP - General Family Medicine 02/17/23 documented as of this encounter
--- OUTSIDE RECORDS SUMMARY | 2024-02-11 11:33 | XMS_ITS | Encounter Summary ---
Author Organization [facility] Address [address] [place] [address] Care Team Providers Care Manager Php Name Role Phone Post, Cari Puente APRN.N.P. Primary Care Provid er Encounter Details Date Type Department Care Team (Late st Contact Info) Description 08/28/2006 Historical Ophthalmology RST OPH Lou Vaca O.D. Social History Tobacco Use Types Packs/Day Years Used Date Smoking Tobacco: Never Assessed Comments Unknown Sex and Gender Information Value Date Recorded Sex Assigned at Female 02/20/2023 8:45 AM XM1 TANK DRIVER Legal Sex Female 2:46 AM XM1 TANK DRIVER Gender Identity Female 02/20/2023 8:45 AM XM1 TANK DRIVER Sexual Orientation Lesbian or Bergman 02/20/2023 8: 45 AM XM1 TANK DRIVER documented as of this encounter Progress Notes * Lou Vaca O.D. - 08/28/2006 8:35 AM CDT Eye General CHIEF COMPLAINT history of X(T) HISTORY OF PRESENT ILLNESS Had surgery with [facility] 10/2005. Her Mother hasn't noticed any drifiting. 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 [address] [place] [address] PCP - General Family Medicine 02/17/23 documented as of this encounter
--- OUTSIDE RECORDS SUMMARY | 2024-02-11 11:33 | XMS_ITS | Encounter Summary ---
Author Organization [facility] Address [address] [place] [address] Care Team Providers Care Television Installer Name Role Phone Post, Mike Pearce APRN C.N.POneyda Primary Care Provid er Encounter Details Date Type Department Care Team (Late st Contact Info) Description 08/20/2005 Historical Ophthalmology RST OPH Ayad Thurman M.D. Social History Tobacco Use Types Packs/Day Years Used Date Smoking Tobacco: Never Assessed Comments Unknown Sex and Gender Information Value Date Recorded Sex Assigned at Female 02/20/2023 8:45 AM MANAGER OF APPLICATIONS DEVELOPMENT Legal Sex Female 2:46 AM MANAGER OF APPLICATIONS DEVELOPMENT Gender Identity Female 02/20/2023 8:45 AM MANAGER OF APPLICATIONS DEVELOPMENT Sexual Orientation Lesbian or Bergman 02/20/2023 8: 45 AM MANAGER OF APPLICATIONS DEVELOPMENT documented as of this encounter Progress Notes * Ayad Thurman M.D. - 08/20/2005 12:00 AM CDT Eye General CHIEF COMPLAINT follow-up on intermittent exotropia HISTORY OF PRESENT ILLNESS This 4 year 8 month old female here for follow-up on intermittent exotropia. Patient's mom states no change in wandering in left eye since the last visit. No patching. No other concerns at this time. IMPRESSION / REPORT / PLAN #1 intermittent XT borderline control per hx and exam discussed with mother, strab surg indicated, goals, risks, alternatives, possible vision loss, possibility of more than one surgery, she'll decide and call to schedule would do R+R L eye DIAGNOSIS #1 intermittent XT CDM Reports - EYEGEN Id: [id number] Status: Fnl documented in this encounter Plan of Treatment Not on file documented as of this encounter Visit Diagnoses Not on filedocumented in this encounter Additional Health Concerns Infection Onset Date Last Indicated Resolved Time COVID19 Pending 12/16/2019 12/16/2019 12/19/2019 3 :49 PM CDT documented as of this encounter Care Teams Television Installer Relationship Specialty Start Date End Date Post, Mike Pearce APRN, C.N.P. [address] [place] [phone] PCP - General Family Medicine 02/17/23 documented as of this encounter
--- OUTSIDE RECORDS SUMMARY | 2024-02-11 11:33 | XMS_ITS | Encounter Summary ---
Author Organization [facility] Address [address] [place] [address] Care Team Providers Care Brand Lead Name Role Phone Post, Mike Pearce APRN C.N.P. Primary Care Provid er Encounter Details Date Type Department Care Team (Late st Contact Info) Description 04/29/2008 Historical Ophthalmology RST OPH Hector Jack M.D. Social History Tobacco Use Types Packs/Day Years Used Date Smoking Tobacco: Never Assessed Comments Unknown Sex and Gender Information Value Date Recorded Sex Assigned at Female 02/20/2023 8:45 AM LEPIDOPTERIST Legal Sex Female 2:46 AM LEPIDOPTERIST Gender Identity Female 02/20/2023 8:45 AM LEPIDOPTERIST Sexual Orientation Lesbian or Bergman 02/20/2023 8: 45 AM LEPIDOPTERIST documented as of this encounter Progress Notes * Hector Jack M.D. - 04/29/2008 1:36 PM CST Eye General CHIEF COMPLAINT double vision HISTORY OF PRESENT ILLNESS 7 year 4 month old female patient here for evaluation of diplopia. The patient describes headache in behind eyes for the past 1 months, which is comes and goes, mild. The patient describes double vision in both eyes for the past 1 months, which comes and goes, and is mild. Patient has not complained of any decreased vision. Patient denies eye pain. Mother does notnotice patient's eyes wandering. Covers left eye when watching television at distance. Gets headaches when double vision comes. Neurodevelopmentally normal. LLRc 2 years ago. IMPRESSION / REPORT / PLAN Consult requested by: Hawa Burk #1 Suspect intermittent exotropia RTC 6 months. DIAGNOSIS #1 Suspect intermittent exotropia CDM Reports - EYEGEN Id: [id number] Status: Fnl documented in this encounter Plan of Treatment Not on file documented as of this encounter Visit Diagnoses Not on filedocumented in this encounter Additional Health Concerns Infection Onset Date Last Indicated Resolved Time COVID19 Pending 12/16/2019 12/16/2019 12/19/2019 3 :49 PM CDT documented as of this encounter Care Teams Brand Lead Relationship Specialty Start Date End Date Post, Mike Pearce APRN, C.N.P. [address] [place] [phone] PCP - General Family Medicine 02/17/23 documented as of this encounter
--- OUTSIDE RECORDS SUMMARY | 2024-02-11 11:33 | XMS_ITS | Encounter Summary ---
Author Organization [facility] Address [address] [place] [address] Care Team Providers Care Grazing Aide Name Role Phone Post, Mike Pearce APRN C.N.P. Primary Care Provid er Encounter Details Date Type Department Care Team (Late st Contact Info) Description 11/08/2008 Historical Ophthalmology RST OPH Hector Jack M.D. Social History Tobacco Use Types Packs/Day Years Used Date Smoking Tobacco: Never Assessed Comments Unknown Sex and Gender Information Value Date Recorded Sex Assigned at Female 02/20/2023 8:45 AM VP SOFTWARE Legal Sex Female 2:46 AM VP SOFTWARE Gender Identity Female 02/20/2023 8:45 AM VP SOFTWARE Sexual Orientation Lesbian or Bergman 02/20/2023 8: 45 AM VP SOFTWARE documented as of this encounter Progress Notes * Hector Jack M.D. - 11/08/2008 9:43 AM CDT Eye General CHIEF COMPLAINT ? intermittent exotropia HISTORY OF PRESENT ILLNESS 7 year old here for follow up of intermittent exotropia. Mom states the last time they were here she was complaining of double vision, and covering an eye. This has since gotten better. No headaches. No diplopia since last visit. IMPRESSION / REPORT / PLAN #1 Intermittent Exotropia, well controlled RTC 1 year DIAGNOSIS #1 Intermittent Exotropia, well controlled CDM Reports - EYEGEN Id: [id number] Status: Fnl documented in this encounter Plan of Treatment Not on file documented as of this encounter Visit Diagnoses Not on filedocumented in this encounter Additional Health Concerns Infection Onset Date Last Indicated Resolved Time COVID19 Pending 12/16/2019 12/16/2019 12/19/2019 3 :49 PM CDT documented as of this encounter Care Teams Grazing Aide Relationship Specialty Start Date End Date Post, Mike Pearce APRN, C.N.P. [address] [place] [address] PCP - General Family Medicine 02/17/23 documented as of this encounter
--- OUTSIDE RECORDS SUMMARY | 2024-02-11 11:33 | XMS_ITS | Encounter Summary ---
Author Organization [facility] Address [address] [place] [address] Care Team Providers Care Dog Beautician Name Role Phone Post, Mike Pearce APRN C.N.P. Primary Care Provid er Encounter Details Date Type Department Care Team (Late st Contact Info) Description 09/19/2004 Historical Ophthalmology RST OPH Ayad Thurman M.D. Social History Tobacco Use Types Packs/Day Years Used Date Smoking Tobacco: Never Assessed Comments Unknown Sex and Gender Information Value Date Recorded Sex Assigned at Female 02/20/2023 8:45 AM STUDENT EDUCATION SPECIALIST Legal Sex Female 2:46 AM STUDENT EDUCATION SPECIALIST Gender Identity Female 02/20/2023 8:45 AM STUDENT EDUCATION SPECIALIST Sexual Orientation Lesbian or Bergman 02/20/2023 8: 45 AM STUDENT EDUCATION SPECIALIST documented as of this encounter Progress Notes * Ayad Thurman M.D. - 09/19/2004 12:00 AM CDT Eye General CHIEF COMPLAINT 10 week recheck- intermittent exotropia, mild anisometropia HISTORY OF PRESENT ILLNESS This is a 3 year 9 month ld female here for a 10 week follow up. She has been patching the right eye 2-3 hours per day as instructed. Some days are more difficult than others. Mom notes no changes inthe wandering of her left eye and it may be slightly worse. IMPRESSION / REPORT / PLAN #1 intermittent XT only fair control per hx, good control on exam discussed with mother, continue to patch R eye 2-3 hrs/day, recheck 2 mos, sooner prn DIAGNOSIS #1 intermittent XT CDM Reports - EYEGEN Id: [id number] Status: Fnl documented in this encounter Plan of Treatment Not on file documented as of this encounter Visit Diagnoses Not on filedocumented in this encounter Additional Health Concerns Infection Onset Date Last Indicated Resolved Time COVID19 Pending 12/16/2019 12/16/2019 12/19/2019 3 :49 PM CDT documented as of this encounter Care Teams Dog Beautician Relationship Specialty Start Date End Date Post, Mike Pearce APRN, C.N.P. [address] [place] [phone] PCP - General Family Medicine 02/17/23 documented as of this encounter
--- OUTSIDE RECORDS SUMMARY | 2024-02-11 11:33 | XMS_ITS | Encounter Summary ---
Author Organization [facility] Address [address] [place] [address] Care Team Providers Care Turf Keeper Name Role Phone Post, Mike Pearce APRN C.N.P. Primary Care Provid er Encounter Details Date Type Department Care Team (Late st Contact Info) Description 02/19/2005 Historical Ophthalmology RST OPH Ayad Thurman M.D. Social History Tobacco Use Types Packs/Day Years Used Date Smoking Tobacco: Never Assessed Comments Unknown Sex and Gender Information Value Date Recorded Sex Assigned at Female 02/20/2023 8:45 AM [employer] COTTON MACHINE OPERATOR Legal Sex Female 2:46 AM [employer] MACHINE OPERATOR Gender Identity Female 02/20/2023 8:45 AM [employer] MACHINE OPERATOR Sexual Orientation Lesbian or Bergman 02/20/2023 8: 45 AM [employer]OK [employer] COT[employer] MACHINE OPERATOR documented as of this encounter Progress Notes * Ayad Thurman M.D. - 02/19/2005 12:00 AM CST Eye General CHIEF COMPLAINT follow up on intermittent exotropia HISTORY OF PRESENT ILLNESS This is a 4 year 2 month old female here for a follow up on intermittent exotropia. No patching done since last visit. The left eye wanders out with no change noticed since last visit. IMPRESSION / REPORT / PLAN #1 intermittent XT marginal control discussed with mother, recheck 6 mos, sooner prn, discuss strab surg at that time DIAGNOSIS #1 intermittent XT marginal control CDM Reports - EYEGEN Id: [id number] Status: Fnl documented in this encounter Plan of Treatment Not on file documented as of this encounter Visit Diagnoses Not on filedocumented in this encounter Additional Health Concerns Infection Onset Date Last Indicated Resolved Time COVID19 Pending 12/16/2019 12/16/2019 12/19/2019 3 :49 PM CDT documented as of this encounter Care Teams Turf Keeper Relationship Specialty Start Date End Date Post, Mike Pearce APRN, C.N.P. [address] [place] [address] PCP - General Family Medicine 02/17/23 documented as of this encounter
--- OUTSIDE RECORDS SUMMARY | 2024-02-11 11:33 | XMS_ITS | Encounter Summary ---
Author Organization [facility] Address [address] [place] [address] Care Team Providers Care Cullet Crusher Name Role Phone Post, Mike Pearce APRN C.N.P. Primary Care Provid er Encounter Details Date Type Department Care Team (Late st Contact Info) Description 12/18/2007 Historical Ophthalmology RST OPH Reid Saxena O.D. [address] [place] [phone] Social History Tobacco Use Types Packs/Day Years Used Date Smoking Tobacco: Never Assessed Comments Unknown Sex and Gender Information Value Date Recorded Sex Assigned at Female 02/20/2023 8:45 AM MAGAZINE JOURNALIST Legal Sex Female 2:46 AM MAGAZINE JOURNALIST Gender Identity Female 02/20/2023 8:45 AM MAGAZINE JOURNALIST Sexual Orientation Lesbian or Bergman 02/20/2023 8: 45 AM MAGAZINE JOURNALIST documented as of this encounter Progress Notes * Reid Saxena O.D. - 12/18/2007 10:14 AM CDT Eye General CHIEF COMPLAINT pt here for eye exam HISTORY OF PRESENT ILLNESS no eye turn problems. vision is good. IMPRESSION / REPORT / PLAN #1 20/20, 20/20 #2 s/p Strab surgery, good alignment today #3 Mild Latent Hyperopia no need to rx today Plan: 1. pt ed 2. 1 year / prn DIAGNOSIS #1 20/20, 20/20 #2 s/p Strab surgery, good alignment today #3 Mild Latent Hyperopia CD Reports - EYEGEN Id: [id number] Status: Fnl documented in this encounter Plan of Treatment Not on file documented as of this encounter Visit Diagnoses Not on filedocumented in this encounter Additional Health Concerns Infection Onset Date Last Indicated Resolved Time COVID19 Pending 12/16/2019 12/16/2019 12/19/2019 3 :49 PM CDT documented as of this encounter Care Teams Cullet Crusher Relationship Specialty Start Date End Date Post, Mike Pearce APRN, C.N.P. [address] [place] [phone] PCP - General Family Medicine 02/17/23 documented as of this encounter
--- OUTSIDE RECORDS SUMMARY | 2024-02-11 11:33 | XMS_ITS | Encounter Summary ---
Author Organization [facility] Address [address] [place] [address] Care Team Providers Care Three Knife Trimmer Name Role Phone Post, Mike Pearce APRN, C.N.P. Primary Care Provid er Encounter Details Date Type Department Care Team (Late st Contact Info) Description 10/29/2005 Historical Ophthalmology RST OPH Ayad Thurman M.D. Social History Tobacco Use Types Packs/Day Years Used Date Smoking Tobacco: Never Assessed Comments Unknown Sex and Gender Information Value Date Recorded Sex Assigned at Female 02/20/2023 8:45 AM COMPUTATIONAL LINGUIST Legal Sex Female 2:46 AM COMPUTATIONAL LINGUIST Gender Identity Female 02/20/2023 8:45 AM COMPUTATIONAL LINGUIST Sexual Orientation Lesbian or Bergman 02/20/2023 8: 45 AM COMPUTATIONAL LINGUIST documented as of this encounter Progress Notes * Ayad Thurman M.D. - 10/29/2005 12:00 AM CDT Eye Postoperative MULTI-VISIT DOCUMENT This document contains multiple patient visits and is available for review in Document Viewer. CDM Reports - EYEPO Id: [id number] Status: Fnl documented in this encounter Plan of Treatment Not on file documented as of this encounter Visit Diagnoses Not on filedocumented in this encounter Additional Health Concerns Infection Onset Date Last Indicated Resolved Time COVID19 Pending 12/16/2019 12/16/2019 12/19/2019 3 :49 PM CDT documented as of this encounter Care Teams Three Knife Trimmer Relationship Specialty Start Date End Date Post, Mike Pearce APRN, C.N.P. [address] [place] [phone] PCP - General Family Medicine 02/17/23 documented as of this encounter
--- OUTSIDE RECORDS SUMMARY | 2024-02-11 11:33 | XMS_ITS | Encounter Summary ---
Author Organization [facility] Address [address] [place] [address] Care Team Providers Care Backrest Assembler Name Role Phone Post, Mike Pearce APRN C.N.POneyda Primary Care Provid er Encounter Details Date Type Department Care Team (Late st Contact Info) Description 10/23/2005 Historical Ophthalmology RST OPH Ayad Thurman M.D. Social History Tobacco Use Types Packs/Day Years Used Date Smoking Tobacco: Never Assessed Comments Unknown Sex and Gender Information Value Date Recorded Sex Assigned at Female 02/20/2023 8:45 AM CHIEF OF STAFF Legal Sex Female 2:46 AM CHIEF OF STAFF Gender Identity Female 02/20/2023 8:45 AM CHIEF OF STAFF Sexual Orientation Lesbian or Bergman 02/20/2023 8: 45 AM CHIEF OF STAFF documented as of this encounter Progress Notes * Ayad Thurman M.D. - 10/23/2005 12:00 AM CDT Eye General CHIEF COMPLAINT pre-op exam for surgery on intermittent exotropia HISTORY OF PRESENT ILLNESS This 4 year 10 month old female is here for evaluation before surgery on intermittent exotropia scheduled for 10/28/05. Patient's mom states that there has been no changes since last visit with her wandering eye. No patching. No other complaints. IMPRESSION / REPORT / PLAN #1 intermittent exotropia discussed in detail with mother; strab surg indicated, goals, alternatives, risks, including possible vision loss, possibility of more than one procedure, need for other members of surgical team to participate, she understands and wants to proceed DIAGNOSIS #1 intermittent exotropia CDM Reports - EYEGEN Id: [id number] Status: Fnl documented in this encounter Plan of Treatment Not on file documented as of this encounter Visit Diagnoses Not on filedocumented in this encounter Additional Health Concerns Infection Onset Date Last Indicated Resolved Time COVID19 Pending 12/16/2019 12/16/2019 12/19/2019 3 :49 PM CDT documented as of this encounter Care Teams Backrest Assembler Relationship Specialty Start Date End Date Post, Mike Pearce APRN, C.N.P. [address] [place] [phone] PCP - General Family Medicine 02/17/23 documented as of this encounter
--- OUTSIDE RECORDS SUMMARY | 2024-02-11 11:33 | XMS_ITS | Encounter Summary ---
Author Organization [facility] Address [address] [place] [address] Care Team Providers Care Supervisor [employer] Name Role Phone Post, Mike Pearce APRN, C.N.P. Primary Care Provid er Reason for Visit * Reason Comments Med Refill Encounter Details Date Type Department Care Team (Late st Contact Info) Description 11/06/2023 Refill Department of Family Medicine, [facility], in [place], [place] [address] [place] [phone] Post, Mike Pearce APRN, C.N.P. [address] [place] [phone] Med Refill Social History Tobacco Use Types [...] often do you attend chur ch or quaker services? Never 08/17/2021 Do you belong to any clubs o r organizations such as voodoo groups, unions, fraternal or athletic groups, or [...] Answer Date Recorded PHQ-2 Score 0 06/17/2023 [facility] Answer Date [...] your living situation today? I have a [facility] place to live 02/20/2023 Education Answer Date Recorded What is the highest level of school you have completed or the highest degree you have received? Some college, no degree 08/17/2021 Comments Unknown Sex and Gender Information Value Date Recorded Sex Assigned at Female 02/20/2023 8:45 AM TWISTING OPERATOR Legal Sex Female 2:46 AM TWISTING OPERATOR Gender Identity Female 02/20/2023 8:45 AM TWISTING OPERATOR Sexual Orientation Lesbian or [place] 02/20/2023 8: 45 AM TWISTING OPERATOR documented as of this encounter Miscellaneous Notes * Telephone Encounter - Ayesha Munson L.P.NOneyda - 11/11/2023 11:19 AM CDT Controlled substance renewal for Methylphenidate 18 mg: No nursing concerns Renewal is pended per the controlled substance prescribing plan located in Synopsis Date last renewed (start date): 10/07/2023 Last provider visit: 02/24/2023 Next provider visit due: 08/2023 OVERDUE; needs scheduling This prescription may be filled on 11/11/2023, and next renewal may be on or after 12/11/2023. documented in this encounter Plan of Treatment Not on file documented as of this encounter Visit Diagnoses Diagnosis Attention Deficit Disorder Combined Type documented in this encounter Additional Health Concerns Assessment Noted Time PHQ-9 Depression Total Score: 1 07/14/19 20 12:53 PM CDT documented as of this encounter Care Teams Supervisor [employer] Relationship Specialty Start Date End Date Post, Mike Pearce APRN, C.N.P. [address] [place] [phone] PCP - General Family Medicine 02/17/23 documented as of this encounter
[2024-02-11 14:36] LABS: Bacterial Vaginosis* POSITIVE (Negative); Candida glab/krus NOT DETECTED (No Detected); Candida species NOT DETECTED (No Detected); Trichomonas vaginalis NOT DETECTED (No Detected)
[2024-02-11 15:08] LABS: Chlamydia DNA Amplified* NOT DETECTED (No Detected); GC DNA Amplified* NOT DETECTED (No Detected)
== END 2024-02-11 11:28 | disposition home or self-care (01) ==
PROVIDERS: Visit Provider Registered Nurse
DX: Z20.2 Contact with and (suspected) exposure to infections with a predominantly sexual mode of transmission (principal)
CPT/HCPCS: 81513; 87481; 87491; 87591; 87661